=== PATIENT | female | born 1995 | race Caucasian/White ===

== ENCOUNTER 2025-04-26 05:26 | Inpatient (IN) | payer BC ==
[~2025-04-26 05:26] MED LIST: Lactated Ringers 1,000 ML IV SCH; Sodium Chloride 0.9% 10 ML Syringe FLUSH PRN; Sodium Chloride 0.9% 10 ML Syringe FLUSH SCH
[2025-04-26] MEDS ORDERED: Lactated Ringers 1,000 ML IV SCH (05:45)
[2025-04-26 05:51] LABS: BASOPHILS ABSOLUTE AUTO 0.0 K/mm3 (0.0-0.2); BASOPHILS PERCENT AUTO 0.4 % (0.0-1.0); EOSINOPHILS ABSOLUTE AUTO 0.1 K/mm3 (0.0-0.4); EOSINOPHILS PERCENT AUTO 1.5 % (0.0-6.0); IMMATURE GRAN ABSOLUTE AUTO 0.08 K/mm3 (0.00-0.05); IMMATURE GRAN PERCENT AUTO 1.1 % (0.0-0.4); LYMPHOCYTES ABSOLUTE AUTO 1.9 K/mm3 (1.0-4.8); LYMPHOCYTES PERCENT AUTO 25.8 % (24.0-44.0); MEAN PLATELET VOLUME 9.7 fl (9.4-12.3); MONOCYTES ABSOLUTE AUTO 0.6 K/mm3 (0.0-0.8); MONOCYTES PERCENT AUTO 7.9 % (0.0-8.0); NEUTROPHILS ABSOLUTE AUTO 4.7 K/mm3 (1.8-7.7); NEUTROPHILS PERCENT AUTO 63.3 % (41.0-71.0); NRBC ABSOLUTE 0.00 (0.00-0.02); NRBC PERCENT 0.0 % (0.0-0.2); PLATELET COUNT,PLT 145 K/mm3 (150-400); RED BLOOD CELL COUNT 4.09 M/mm3 (4.10-5.30); WHITE BLOOD CELL COUNT,WBC 7.44 K/mm3 (3.9-11.3)
[2025-04-26] MEDS: Lactated Ringers 1,000 ML IV SCH (06:17)
[2025-04-26] MEDS ORDERED: Citric Acid/Sodium Citrate Solution 30 ML Cup PO ONE (06:30)
[2025-04-26] MEDS ORDERED: Ondansetron 4 MG/2 ML SDV ONE (06:37)
[2025-04-26] MEDS ORDERED: Morphine PF 10 MG/10 ML SDV ONE (06:37)
[2025-04-26] MEDS ORDERED: Ketorolac 30 MG/ML SDV ONE (06:37)
[2025-04-26] MEDS ORDERED: Dexamethasone 4 MG/ML SDV ONE (06:37)
[2025-04-26] MEDS ORDERED: fentaNYL 100 MCG/2 ML SDV IVPUSH PRN ×2 (06:57→08:29)
[2025-04-26] MEDS: Citric Acid/Sodium Citrate Solution 30 ML Cup PO ONE (07:12)
[2025-04-26] MEDS ORDERED: Oxytocin/0.9 % Sodium Chloride 30 UNIT/500 ML BAG IV SCH ×2 (07:15→07:30)
[2025-04-26] MEDS ORDERED: Oxytocin/0.9 % Sodium Chloride 30 UNIT/500 ML BAG IV ONE (07:58)
[2025-04-26] MEDS ORDERED: Phenylephrine 1% 10 MG/ML SDV ONE (08:00)
[2025-04-26] MEDS ORDERED: Lactated Ringers 1,000 ML ONE (08:16)
[2025-04-26] MEDS ORDERED: diphenhydrAMINE 50 MG/ML SDV IVPUSH PRN ×2 (08:29→10:05)
[2025-04-26] MEDS ORDERED: Ondansetron 4 MG/2 ML SDV IVPUSH PRN (08:29)
[2025-04-26] MEDS ORDERED: dexmedeTOMIDine HCl 200 MCG/2 ML SDV ONE (08:34)
[2025-04-26] MEDS ORDERED: Ropivacaine 0.5% 5 MG/ML 30 ML SDV ONE (08:34)
[2025-04-26] MEDS: Ondansetron 4 MG/2 ML SDV IVPUSH PRN (09:45)
[2025-04-26] MEDS ORDERED: Naloxone 0.4 MG/ML SDV IVPUSH PRN (10:05)
[2025-04-26] MEDS ORDERED: ePHEDrine 50 MG/ML SDV IVPUSH PRN (10:05)
[2025-04-26 11:26] LABS: BASOPHILS ABSOLUTE AUTO 0.0 K/mm3 (0.0-0.2); BASOPHILS PERCENT AUTO 0.2 % (0.0-1.0); EOSINOPHILS ABSOLUTE AUTO 0.0 K/mm3 (0.0-0.4); EOSINOPHILS PERCENT AUTO 0.1 % (0.0-6.0); IMMATURE GRAN ABSOLUTE AUTO 0.06 K/mm3 (0.00-0.05); IMMATURE GRAN PERCENT AUTO 0.6 % (0.0-0.4); LYMPHOCYTES ABSOLUTE AUTO 1.2 K/mm3 (1.0-4.8); LYMPHOCYTES PERCENT AUTO 11.3 % (24.0-44.0); MEAN PLATELET VOLUME 10.2 fl (9.4-12.3); MONOCYTES ABSOLUTE AUTO 0.4 K/mm3 (0.0-0.8); MONOCYTES PERCENT AUTO 3.9 % (0.0-8.0); NEUTROPHILS ABSOLUTE AUTO 9.1 K/mm3 (1.8-7.7); NEUTROPHILS PERCENT AUTO 83.9 % (41.0-71.0); NRBC ABSOLUTE 0.00 (0.00-0.02); NRBC PERCENT 0.0 % (0.0-0.2); PLATELET COUNT,PLT 119 K/mm3 (150-400); RED BLOOD CELL COUNT 3.81 M/mm3 (4.10-5.30); WHITE BLOOD CELL COUNT,WBC 10.80 K/mm3 (3.9-11.3)
[2025-04-26 12:05] LABS: INR 0.95
[2025-04-26] MEDS: Oxytocin/0.9 % Sodium Chloride 30 UNIT/500 ML BAG IV SCH (12:25)
[2025-04-26] MEDS: Ondansetron 4 MG/2 ML SDV IV PRN (14:24)
[2025-04-26] MEDS: Ketorolac 30 MG/ML SDV IVPUSH SCH (14:29)
[2025-04-26] MEDS: Scopalamine 1mg/3day Transdermal Patch TRDERM PRN (16:42)
[2025-04-27 05:03] LABS: MEAN PLATELET VOLUME 9.9 fl (9.4-12.3); NRBC ABSOLUTE 0.00 (0.00-0.02); NRBC PERCENT 0.0 % (0.0-0.2); PLATELET COUNT,PLT 112 K/mm3 (150-400); RED BLOOD CELL COUNT 2.91 M/mm3 (4.10-5.30); WHITE BLOOD CELL COUNT,WBC 9.29 K/mm3 (3.9-11.3)
== END 2025-04-28 10:55 | disposition home or self-care (01) | DRG 540 ==
LOC: JD.OB 05:26
PROVIDERS: ADMIT Obstetrics & Gynecology; ATTEND Obstetrics & Gynecology
PROC: 10D00Z1 Extraction of Products of Conception, Low, Open Approach (ICD-10-PCS; principal; 2025-04-26 07:30)
DX: O80 Encounter for full-term uncomplicated delivery (principal); Z3A.37 37 weeks gestation of pregnancy; Z37.0 Single live birth; D62 Acute posthemorrhagic anemia; Z79.899 Other long term (current) drug therapy; O72.2 Delayed and secondary postpartum hemorrhage; Z98.890 Other specified postprocedural states; O44.53 Low lying placenta with hemorrhage, third trimester
CPT/HCPCS: 01961; 36415; 59025; 64488; 85025; 85027; 85384; 85610; 85730; 86592; 86850; 86900; 86901; 94762; A9270-GY; J0690; J1100; J1885; J2210; J2274; J2371; J2405; J2765; J2795; J7120; J7121; J7999